=== PATIENT | female | born 2000 | race Two or more races ===

== ENCOUNTER 2023-04-22 17:35 | Emergency (ER) | payer BC, MEDICAID ==
[~2023-04-22] VITALS: Ht 162.6 cm; Wt 97.8 kg
[2023-04-22 17:36] VITALS: BP 118/78
[2023-04-22] MEDS ORDERED: naproxen 500mg tablet PO ONE (18:45)
== END 2023-04-22 19:07 | disposition home or self-care (01) ==
LOC: ER 17:35
DX: M25.532 Pain in left wrist (principal); M19.032 Primary osteoarthritis, left wrist
CPT/HCPCS: 99282